=== PATIENT | female | born 1950 ===

== ENCOUNTER 2017-02-23 19:04 | Inpatient (IN) | payer MEDICARE ==
--- NOTE | 2017-02-23 20:09 | C.PDOC ---
Time Seen by Provider: 02/23/17 19:28 Chief Complaint (Nursing): Lower Extremity Problem/Injury Past Medical History Vital Signs: Last Vital Signs Temp 97.9 F 02/23/17 19:16 Pulse 70 02/23/17 19:16 Resp 20 02/23/17 19:16 BP 170/79 H 02/23/17 19:16 Pulse Ox 100 02/23/17 19:16 - Medical History PMH: Anxiety, Depression, Diabetes Family History: States: Unknown Family Hx - Social History Hx Tobacco Use: No Hx Alcohol Use: No Hx Substance Use: No - Immunization History Hx Tetanus Toxoid Vaccination: No Hx Influenza Vaccination: No Hx Pneumococcal Vaccination: No ED Course And Treatment O2 Sat by Pulse Oximetry: 100 Disposition Counseled Patient/Family Regarding: Studies Performed, Diagnosis - Disposition Disposition Time: 20:09
--- NOTE | 2017-02-23 20:20 | C.PDOC ---
History Of Present Illness Kay Fofana is a 66 year old female, with a past medical history of diabetes, who was brought to the emergency department by EMS complaining of right knee pain s/p fall after losing balance onset 12pm today. Patient states this is her 4th episode in which she just loses balance and falls. She has an appointment with a specialist in March for her symptoms. She denies any loss of consciousness, visual changes, ringing in ears, lightheadedness or dizziness. No further medical complaints. 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) Current Symptoms Are (Timing): Still Present Severity: Mild Pain Scale Rating Of: 2 Recent travel outside of the [place]: No Past Medical History Reviewed: Historical Data, Nursing Documentation, Vital Signs Vital Signs: Last Vital Signs Temp 97.9 F 02/23/17 19:16 Pulse 90 02/23/17 20:23 Resp 16 02/23/17 20:23 BP 168/97 H 02/23/17 20:23 Pulse Ox 100 02/23/17 21:34 - Medical History PMH: Anxiety, Depression, Diabetes Surgical History: No Surg Hx Family History: States: No Known Family Hx - Social History Hx Tobacco Use: No Hx Alcohol Use: No Hx Substance Use: No - Immunization History Hx Tetanus Toxoid Vaccination: No Hx Influenza Vaccination: No Hx Pneumococcal Vaccination: No Review Of Systems Constitutional: Negative for: Fever, Chills Eyes: Negative for: Vision Change ENT: Negative for: Other (ear ringing) Cardiovascular: Negative for: Chest Pain, Light Headedness Respiratory: Negative for: Shortness of Breath Gastrointestinal: Negative for: Nausea, Vomiting Musculoskeletal: Positive for: Leg Pain (right knee) Skin: Negative for: Rash, Lesions Neurological: Negative for: Dizziness, Other (LOC) Psych: Negative for: Anxiety Physical Exam - Physical Exam Appears: Non-toxic, No Acute Distress Skin: Warm, Dry Head: Normacephalic Eye(s): bilateral: Normal Inspection Oral Mucosa: Moist Neck: Trachea Midline, Supple Chest: Symmetrical Cardiovascular: Rhythm Regular Respiratory: No Rales, No Rhonchi, No Wheezing Gastrointestinal/Abdominal: Soft, No Tenderness, No Distention Back: No CVA Tenderness Extremity: Tenderness (right knee), Capillary Refill (<2 sec), No Deformity Extremity: Right: [place] Tenderness (knee), Bilateral: Normal Color And Temperature Pulses: Left Dorsalis Pedis: Normal, Right Dorsalis Pedis: Normal Neurological/Psych: Oriented x3 (awake and alert), Normal Speech, Normal Cognition Gait: Steady ED Course And Treatment - Laboratory Results Result Diagrams: 02/23/17 20:23 02/23/17 20:23 ECG: Interpreted By Me, Viewed By Me ECG Rhythm: Sinus Rhythm (95), Nonspecific Changes O2 Sat by Pulse Oximetry: 100 (RA) Pulse Ox Interpretation: Normal Progress Note: Initial Impression: right knee pain s/p fall. Initial Plan: -- Head w/o contrast [CT]. --Knee without contrast right [CT]. --EKG. --Comp Metabolic Panel. --PTT. --PT. --Morphine. --Urinalysis. --reevaluation. 21 :19. Head CT. FINDINGS: Limitations: Motion artifact - mild. Brain: Mild-to- moderate atrophy. No definite intracranial hemorrhage. No mass. Few scattered foci of decreased attenuation within periventricular/subcortical white matter. No edema. Ventricles: Cavum septum pellucidum and vergae. Bones/joints: No acute fracture. Soft tissues: Unremarkable. Vasculature: Mild atherosclerotic disease of intracranial arteries. Sinuses: No acute sinusitis. Mastoid air cells: No mastoid effusion. Orbits: Unremarkable as visualized. IMPRESSION: 1. No definite intracranial hemorrhage. 2. Nonspecific white matter changes. 3. Incidental/non-acute findings are described above. 21:22. Knee CT. FINDINGS: Bones/joints: No acute fracture. No dislocation. Mild enthesopathy. No significant joint effusion. Soft tissues: Minimal stranding within anterior subcutaneous tissues. IMPRESSION: 1. No fracture. 2. Incidental/non-acute findings are described above. 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 encouraged to return of symptoms recur Reevaluation Time: 22:02 Reassessment Condition: Improved Disposition Counseled Patient/Family Regarding: Studies Performed, Diagnosis, Need For Followup - Disposition Referrals: Eldon Myles MD [Staff Provider] - Disposition: HOME/ ROUTINE Disposition Time: 20:20 Condition: FAIR Instructions: Knee Pain (ED), Fall Prevention for Older Adults (ED), Fall Prevention (DC) Forms: Rouxbe (Faroese) - Clinical Impression Clinical Impression: Fall, Knee pain, right - Scribe Statement Saad Hicks Provider Attestation: All medical record entries made by the Scribe were at my direction and personally dictated by me. I have reviewed the chart and agree that the record accurately reflects my personal performance of the history, physical exam, medical decision making, and the department course for this patient. I have also personally directed, reviewed, and agree with the discharge instructions and disposition.
[2017-02-23 20:29] LABS: BASO # 0.1 K/uL (0.0-0.2); BASO % 0.6 % (0.0-2.0); EOS # 0.1 K/uL (0.0-0.7); EOS % 0.8 % (0.0-4.0); HEMATOCRIT 38.2 % (34.0-47.0); LYMPH # 1.2 K/uL (1.0-4.3); LYMPH % 11.5 % (20.0-40.0); MEAN CELL VOLUME 80.4 fL (81.0-99.0); MEAN CORPUSCULAR HEMOGLOBIN 27.4 pg (27.0-31.0); MEAN CORPUSCULAR HGB CONC 34.1 g/dL (33.0-37.0); MEAN PLATELET VOLUME 9.4 fL (7.2-11.7); MONO # 0.4 K/uL (0.0-0.8); MONO % 4.2 % (0.0-10.0); WHITE BLOOD COUNT 10.3 K/uL (4.8-10.8)
[2017-02-23 20:40] LABS: ALB/GLOB RATIO 1.1 (1.0-2.1); ALKALINE PHOSPHATASE 149 U/L (38-126); ALT/SGPT 24 U/L (9-52); AST/SGOT 19 U/L (14-36); BILIRUBIN,TOTAL 0.6 mg/dL (0.2-1.3); BLOOD UREA NITROGEN 19 mg/dL (7-17); CALCIUM 8.5 mg/dl (8.6-10.4); CARBON DIOXIDE 26 mmol/L (22-30); CHLORIDE 93 mmol/L (98-107); GFR AFRICAN-AMERICAN > 60; GLUCOSE,RANDOM 393 mg/dL (65-105); POTASSIUM 4.4 mmol/L (3.6-5.2); SODIUM 130 mmol/L (132-148); TOTAL PROTEIN 7.8 g/dL (6.3-8.3)
--- NOTE | 2017-02-23 21:20 | CT ---
EXAM: CT Head Without Intravenous Contrast CLINICAL HISTORY: 66 years old, female; Injury or trauma; Fall; Initial encounter; Blunt trauma (contusions or hematomas); Consciousness not specified; Additional info: R/O bleed TECHNIQUE: Axial computed tomography images of the head/brain without intravenous contrast. All CT scans at this facility use one or more dose reduction techniques, viz.: automated exposure control; ma/kV adjustment per patient size (including targeted exams where dose is matched to indication; i.e. head); or iterative reconstruction technique. Coronal and sagittal reformatted images were created and reviewed. COMPARISON: No relevant prior studies available. FINDINGS: Limitations: Motion artifact - mild. Brain: Ikii-ed-[id number] atrophy. No definite intracranial hemorrhage. No mass. Few scattered foci of decreased attenuation within periventricular/subcortical white matter. No edema. Ventricles: Cavum septum pellucidum and vergae. Bones/joints: No acute fracture. Soft tissues: Unremarkable. Vasculature: Mild atherosclerotic disease of intracranial arteries. Sinuses: No acute sinusitis. Mastoid air cells: No mastoid effusion. Orbits: Unremarkable as visualized. IMPRESSION: 1. No definite intracranial hemorrhage. 2. Nonspecific white matter changes. 3. Incidental/non-acute findings are described above.
--- NOTE | 2017-02-23 21:22 | CT ---
EXAM: CT Right Lower Extremity Without Intravenous Contrast, Knee CLINICAL HISTORY: 66 years old, female; Injury or trauma; Fall; Initial encounter; Sprain or strain; Patella or knee; Right; Additional info: Pain, fall TECHNIQUE: Axial computed tomography images of the right knee without intravenous contrast. All CT scans at this facility use one or more dose reduction techniques, viz.: automated exposure control; ma/kV adjustment per patient size (including targeted exams where dose is matched to indication; i.e. head); or iterative reconstruction technique. Coronal and sagittal reformatted images were created and reviewed. COMPARISON: No relevant prior studies available. FINDINGS: Bones/joints: No acute fracture. No dislocation. Mild enthesopathy. No significant joint effusion. Soft tissues: Minimal stranding within anterior subcutaneous tissues. IMPRESSION: 1. No fracture. 2. Incidental/non-acute findings are described above.
[2017-02-24 00:28] LABS: RBC URINE 1 /hpf (0-3); URINE BILIRUBIN NEGATIVE (NEGATIVE); URINE BLOOD NEGATIVE (NEGATIVE); URINE COLOR Straw (YELLOW); URINE GLUCOSE (UA) 3+ mg/dL (Normal); URINE KETONE NEGATIVE (NEGATIVE); URINE LEUKOCYTE ESTERASE NEG Leu/uL (Negative); URINE PROTEIN NEGATIVE (NEGATIVE); URINE UROBILINOGEN NORMAL mg/dL (0.2-1.0); WBC URINE 1 /hpf (0-5)
[2017-02-24] MEDS: (Novolog) Insulin Aspart, Recombinant 100 u/ml 10 ml vial SC SCH ×4 (08:26→21:29)
[2017-02-24] MEDS ORDERED: Influenza Vaccine 60 mcg/0.5 mL SYR (4YR UP) IM ONE (10:00)
[2017-02-24] MEDS: Enoxaparin 40 mg Syringe SC SCH (12:32)
[2017-02-24] MEDS: (Novolog Mix 70/30) Insulin Aspart/Insulin Aspar 100 units/ml SC SCH (17:25)
--- NOTE | 2017-02-25 01:38 | HP ---
HISTORY OF PRESENT ILLNESS: A 66-year-old female who was brought in with history of pain in the right knee. She had a fall on. She has unbalance on the feet. She has a recurrent syncope in the past and is the fourth episode of imbalance. She was advised to see a neurologist as an outpatient. Cardiac workup was scheduled but has not been done yet. EKG was unremarkable. PERSONAL HISTORY: Does not smoke, does not drink. REVIEW OF SYSTEMS: Generalized weakness is noted. No fever, no chills, no cough, no hemoptysis, no hematemesis, no melena. Osteoarthritis involving multiple joints; depression and anxiety, under the care of Dr. Oliveira. No history of TIAs or CVAs. No urinary complaints. No documented WI. No heart failure. PAST MEDICAL HISTORY: Nothing major medical but has history of anxiety, depression, and diabetes. MEDICATIONS: At home include metformin 1000 mg daily, Januvia 50 mg, insulin 70/30 at 9 units b.i.d., Restoril, Seroquel, imipramine, and Xanax. PHYSICAL EXAMINATION: GENERAL: Shows elderly female in no acute distress. VITAL SIGNS: She is 5 feet 6 inches and weighs 170 pounds. Her blood pressure is 130/70, heart rate of 72, sinus on the monitor, respiratory rate of 14, and afebrile. HEENT: Head is normocephalic. Eyes, no pallor, no icterus. NECK: Supple. LUNGS: Clear. HEART: PMI is not localized. S1, S2 is normal. No gallops. Soft early systolic murmur, grade I-II/ in the aortic and mitral area. ABDOMEN: Soft, nontender. EXTREMITIES: No cyanosis, clubbing, or edema. Tenderness is noted in the right knee and the back of the knee. Distal pulses are intact. LABORATORY DATA: CBC, Chem-[address] of the head, nothing acute. X-ray of the knee, I do not have a report, but was stated to be no fracture. ASSESSMENT: A 66-year-old female with history of recurrent syncope and fall, pain in the right knee. PLAN: To get Orthopedic consultation and Neurologic consultation. Does not appear to be cardiac in nature. We will follow. Physical therapy. Eldon Myles MD
[2017-02-25] MEDS: (Novolog) Insulin Aspart, Recombinant 100 u/ml 10 ml vial SC SCH ×3 (08:11→17:16)
[2017-02-25 08:17] VITALS: O2SAT 96
--- NOTE | 2017-02-25 09:29 | CP.PCM.PN ---
Subjective - Date & Time of Evaluation Date of Evaluation: 02/25/17 Time of Evaluation: 09:25 - Subjective Subjective: Full consult to follow Dr. Durán 66F complains of right knee pain after fall 2 days ago. She denies any knee pain prior to this fall. She is unable to walk without significant knee pain. Denies fever/chills. Objective - Vital Signs/Intake and Output Vital Signs (last 24 hours): Temp Pulse Resp BP Pulse Ox 97.9 F 87 20 125/75 96 02/25/17 08:16 02/25/17 08:16 02/25/17 08:16 02/25/17 08:16 02/25/17 08:16 Intake and Output: 02/25/17 02/25/17 06:59 18:59 Intake Total 600 Balance 600 - Medications Medications: Current Medications Alprazolam (Xanax) 0.5 mg PO BID [facility] Last Admin: 02/24/17 16:45 Dose: 0.5 mg Celecoxib (Celebrex) 200 mg PO DAILY [facility] Last Admin: 02/24/17 09:25 Dose: 200 mg Enoxaparin Sodium (Lovenox) 40 mg SC DAILY [facility] Last Admin: 02/24/17 12:32 Dose: 40 mg Imipramine HCl (Tofranil) 50 mg PO HS [facility] Last Admin: 02/24/17 21:21 Dose: 50 mg Insulin Aspart (Novolog) 0 unit SC ACHS [facility] PRN Reason: Protocol Last Admin: 02/25/17 08:11 Dose: 2 unit Insulin Aspart (Novolog Mix 70/30 (70/30 Units/Ml)) 9 units SC BID [facility] Last Admin: 02/24/17 17:25 Dose: 9 units Lidocaine (Lidoderm) 1 ea TD DAILY [facility] Metformin HCl (Glucophage) 1,000 mg PO DAILY [facility] Pneumococcal Polyvalent Vaccine (Pneumovax 23 Vaccine) 0.5 ml IM .ONCE ONE Stop: 02/25/17 10:01 Quetiapine Fumarate (Seroquel) 100 mg PO HS [facility] Last Admin: 02/24/17 21:21 Dose: 100 mg Sitagliptin Phosphate (Januvia) 50 mg PO DAILY [facility] Temazepam (Restoril) 30 mg PO HS [facility] Last Admin: 02/24/17 21:21 Dose: 30 mg - Labs Labs: 02/23/17 20:23 02/23/17 20:23 PT 11.3 SECONDS (9.7-12.2) 02/23/17 20:23 INR 1.0 02/23/17 20:23 APTT 30 SECONDS (21-34) 02/23/17 20:23 - Constitutional Appears: Well, No Acute Distress - Head Exam Head Exam: ATRAUMATIC, NORMAL INSPECTION - Extremities Exam Additional comments: Right knee: minimal effusion. No erythema. TTP medial knee. No erythema, skin intact, No laxity to varus/valgus/ant/post drawer/regan, neg mcmurrays, no crepitus, knee is warm compared to left - Neurological Exam Neurological Exam: Alert, Awake, Oriented x3 Neuro motor strength exam: Right Lower Extremity: 5 (5/5 ankle/toes strength) - Psychiatric Exam Psychiatric exam: Normal Affect, Normal Mood - Skin Skin Exam: Dry, Intact, Normal Color, Warm Assessment and Plan (1) Primary osteoarthritis of right knee Assessment & Plan: mild, medial compartment r/o meniscal tear from fall MRI ice knee immobilizer for comfort on NSAIDs will update weight bearing after imaging d/w Dr. Durán, full consult to follow Status: Acute Radiology Interpretation - Radiology Interpretation #2 Interpretation: Accession No. 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 no. Patient Name: SARAH RAMOS Pt. [address]: [address] [place] [address]. Rec #: [id number] [place] [address]: Amanda POPE, Augustina Pt Order Location: [facility] : 1950 Female Age: 66 Order #: [id number] Reason for exam: pain, fall CT Scan KNEE WITHOUT CONTRAST RIGHT Exam Date: 02/23/17 This imaging exam was performed at [facility] EXAM: CT Right Lower Extremity Without Intravenous Contrast, Knee CLINICAL HISTORY: 66 years old, female; Injury or trauma; Fall; Initial encounter; Sprain or strain; Patella or knee; Right; Additional info: Pain, fall TECHNIQUE: Axial computed tomography images of the right knee without intravenous contrast. All CT scans at this facility use one or more dose reduction techniques, viz.: automated exposure control; ma/kV adjustment per patient size (including targeted exams where dose is matched to indication; i.e. head); or iterative reconstruction technique. Coronal and sagittal reformatted images were created and reviewed. COMPARISON: No relevant prior studies available. FINDINGS: Bones/joints: No acute fracture. No dislocation. Mild enthesopathy. No significant joint effusion. Soft tissues: Minimal stranding within anterior subcutaneous tissues. IMPRESSION: 1. No fracture. 2. Incidental/non-acute findings are described above. Dictated By: Checo Chu MD Dictated Date/Time: 02/23/172121 Signed By: Checo Chu MD Date Signed: 2121 Transcribed By: [facility] Transcribe Date/Time : 02/23/172121 RODO/RENEE
[2017-02-25] MEDS: Enoxaparin 40 mg Syringe SC SCH (09:50)
[2017-02-25] MEDS: (Novolog Mix 70/30) Insulin Aspart/Insulin Aspar 100 units/ml SC SCH (09:53)
[2017-02-25] MEDS ORDERED: Lidocaine 5% Patch TD SCH (10:00)
[2017-02-25] MEDS ORDERED: Pneumococcal 23-Valent Vaccine IM ONE (10:00)
--- NOTE | 2017-02-25 10:07 | RAD ---
PROCEDURE: Right Knee Radiographs. HISTORY: knee pain COMPARISON: None. FINDINGS: BONES: . No fracture. An year patellar cortical hyperostoses and blending quadriceps and patellar tendon insertional enthesophytes noted JOINTS: Mild medial femoral joint space narrowing. Tibial spine mild spurring. Mild osteoarthrosis inferred JOINT EFFUSION: None. OTHER FINDINGS: None. IMPRESSION: No fracture or lytic lesions. Mild degenerative changes/ osteoarthrosis medial femoral tibial compartment Quadriceps and patellar tendon insertional enthesophytes
--- NOTE | 2017-02-25 13:25 | CON ---
DATE: HISTORY OF PRESENT ILLNESS: The patient is admitted by Dr. Eldon Myles with the diagnosis of syncope, dizziness, and fall. The patient gave history of sustained a fall 2 days prior to admission. She was complaining of pain in the right knee. She denied any history of previous problems with the right knee. PHYSICAL EXAMINATION: EXTREMITIES: Examination reveals minimal swelling of the knee. Range of motion of the knee is painful in extremes. No evidence of ligamentous instability noted. Fide sign is mildly positive. Mike sign is negative. Anterior posterior drawer signs are negative. Range of motion is painful in the extremes. Minimal medial joint line tenderness noted. LABORATORY DATA: X-rays reveal minimal narrowing of the medial joint space. Minimal patellofemoral changes noted. DIAGNOSES: Pain at the knee. Rule out tear of the medial meniscus. TREATMENT: 1. At this point, we will start physical therapy including moist heat range of motion and strengthening exercises. 2. We will get an MRI to assess the menisci and ligaments. 3. Lidoderm patches for external application. 4. We will follow the patient. Rom Durán MD
[2017-02-25 15:55] VITALS: BP 121/78; PULSE 81; RESP 18; TEMP 98.4
--- NOTE | 2017-02-25 17:49 | CP.PCM.PN ---
Subjective - Date & Time of Evaluation Date of Evaluation: 02/25/17 Time of Evaluation: 17:45 - Subjective Subjective: PT SEEN AND EXAMIEND TODAY BY DR ABBOTT AND DR MOLINA. DENIES ANY PAIN, SOB, RESP EASY AND UNLABORED. NAD Objective - Vital Signs/Intake and Output Vital Signs (last 24 hours): Temp Pulse Resp BP Pulse Ox 98.4 F 81 18 121/78 96 02/25/17 15:54 02/25/17 15:54 02/25/17 15:54 02/25/17 15:54 02/25/17 15:54 Intake and Output: 02/25/17 02/25/17 06:59 18:59 Intake Total 600 300 Balance 600 300 - Medications Medications: Current Medications Alprazolam (Xanax) 0.5 mg PO BID [facility] Last Admin: 02/25/17 17:15 Dose: 0.5 mg Celecoxib (Celebrex) 200 mg PO DAILY [facility] Last Admin: 02/25/17 09:52 Dose: 200 mg Enoxaparin Sodium (Lovenox) 40 mg SC DAILY [facility] Last Admin: 02/25/17 09:50 Dose: 40 mg Imipramine HCl (Tofranil) 50 mg PO HS [facility] Last Admin: 02/24/17 21:21 Dose: 50 mg Insulin Aspart (Novolog) 0 unit SC [facility] PRN Reason: Protocol Last Admin: 02/25/17 17:16 Dose: Not Given Insulin Aspart (Novolog Mix 70/30 (70/30 Units/Ml)) 9 units SC BID [facility] Last Admin: 02/25/17 09:53 Dose: 9 units Lidocaine (Lidoderm) 1 ea TD DAILY [facility] Last Admin: 02/25/17 09:51 Dose: 1 ea Metformin HCl (Glucophage) 1,000 mg PO DAILY [facility] Last Admin: 02/25/17 09:51 Dose: 1,000 mg Quetiapine Fumarate (Seroquel) 100 mg PO HS [facility] Last Admin: 02/24/17 21:21 Dose: 100 mg Sitagliptin Phosphate (Januvia) 50 mg PO DAILY [facility] Last Admin: 02/25/17 09:51 Dose: 50 mg Temazepam (Restoril) 30 mg PO HS [facility] Last Admin: 02/24/17 21:21 Dose: 30 mg - Labs Labs: 02/23/17 20:23 02/23/17 20:23 PT 11.3 SECONDS (9.7-12.2) 02/23/17 20:23 INR 1.0 02/23/17 20:23 APTT 30 SECONDS (21-34) 02/23/17 20:23 Assessment and Plan - Assessment and Plan (Free Text) Plan: 66 Y/O FEMALE WITH PMHX DM, OA ADMITTED S/P FALL, RIGHT KNEE PAIN CT HEAD- NEGATIVE FOR ANY BLEED OR FX, CT RIGHT KNEE- NO FX PT REFUSED FOR MRI RIGHT KNEE AND ERNESTO PT CLEARED FOR DISCHARGE PER DR ABBOTT OUTPT PHYSICAL THERAPY AND MRI OF RIGHT KNEE FALL PRECAUTIONS, POC DISCUSSED WITH ALEM AND PT AGREE WITH POC, VERBALIZE UNDERSTANDING
--- NOTE | 2017-02-25 21:37 | CON ---
DATE: NEUROLOGY CONSULTATION REASON FOR CONSULTATION: Frequent falls. HISTORY OF PRESENT ILLNESS: Patient is a 66-year-old female, who has been asked for evaluation of frequent falls. Over the last 1 month, she has fallen four times. In the last one week, she has fallen two times. According to her, she is walking and all of a sudden, her right leg gives way. Then her knee tonya and she falls down. She does not have any focal weakness in the arms or legs. She denies any dizziness, headaches, chest pain, or palpitation prior to the fall. She does not loose consciousness. She also complains of pain in her right knee. Denies having any fever at home. REVIEW OF SYSTEMS: Denies any headache, dizziness, chest pain, shortness of breath, abdominal pain, constipation, diarrhea, dysuria, cough, or sputum production. PAST MEDICAL HISTORY: Includes diabetes mellitus and anxiety. MEDICATIONS: Include alprazolam, imipramine, temazepam, Janumet, Seroquel, and insulin. ALLERGIES: NO KNOWN DRUG ALLERGIES. SOCIAL HISTORY: Denies smoking, use of alcohol, or illicit drugs. FAMILY HISTORY: Reviewed and noncontributory to the case. PHYSICAL EXAMINATION: GENERAL: The patient is a middle aged to elderly female, sitting in no acute distress. VITAL SIGNS: Her blood pressure is 125/75, heart rate is 87 per minute, breathing at a rate of 16 per minute, temperature is 97.9 degree Fahrenheit. HEENT: Normocephalic, atraumatic. NECK: Supple. There is no carotid bruit. LUNGS: Clear. CARDIOVASCULAR SYSTEM: S1 and S2 audible. No murmurs. ABDOMEN: Soft and nontender with bowel sounds present. NEUROLOGIC: Mental Status: Patient is awake, alert, and oriented to time, place, and person. Speech is fluent. Naming and repetition are normal. Memory and cognition are intact. Cranial Nerve Examination: Pupils are 3 mm bilaterally, reactive to light. Visual goyal are full. Extraocular movements are intact. There is no facial asymmetry. Palate is upgoing bilaterally and tongue is midline. Motor Examination: Tone is normal. Power is 5/5 bilaterally in all extremities. Reflexes +1 and symmetrical. Plantars are downgoing bilaterally. Cerebellar Examination: [id number] shows no dysmetria. Gait is antalgic, she is walking with a knee immobilizer. Plantars are downgoing bilaterally. LABORATORY DATA: Reviewed. CT scan of the head, no definite intracranial hemorrhage, nonspecific white matter changes. She has x-rays of the right knee, which shows no fracture or lytic lesions. Mild degenerative changes/osteoarthritis in medial, frontal, tibial regions. IMPRESSION: Status post multiple falls, which appears to be secondary to the right knee pain and right knee give-way weakness secondary to pain. RECOMMENDATIONS: 1. Patient to have Orthopedic evaluation. 2. Patient to have MRI of the right knee to look for any meniscal tear, responsible for the patient's right knee give-way type of weakness when she walks. 3. Patient does not have any focal neurologic deficits. 4. Please continue supportive care and other treatment. Thank you for the opportunity to participate in the care of this patient. Heydi Costello MD
--- NOTE | 2017-02-26 09:20 | CARD ---
APPROVED REPORT EKG Measurement Heart Sths13SKET MA 160P38 [id number] <Conclusion> Normal sinus rhythm Normal ECG
== END 2017-02-25 18:30 | disposition home or self-care (01) | DRG 554 ==
LOC: C.ER 19:04 → C.6T 22:56
PROVIDERS: ADMIT Internal Medicine Cardiovascular Disease; ATTEND Internal Medicine Cardiovascular Disease
DX: M17.11 Unilateral primary osteoarthritis, right knee (principal); E11.9 Type 2 diabetes mellitus without complications; F41.9 Anxiety disorder, unspecified; F32.9 Major depressive disorder, single episode, unspecified; R29.6 Repeated falls